=== PATIENT | female | born 1985 | race Caucasian/White ===

== ENCOUNTER 2017-12-28 15:11 | Outpatient (CLI) | payer OTHER ==
[~2017-12-28] VITALS: Ht 160 cm; Wt 90.9 kg
[~2017-12-28 15:11] MED LIST: DOCU-131 PO; IBUP-1222 PO; METF-650 PO; METF500T4 PO; OXYC-302 PO
[2017-12-28 15:27] VITALS: BP 120/74
[2017-12-28] MEDS ORDERED: PREN1TAB69 PO (15:43)
[2017-12-28 16:59] LABS: AMNISURE NEGATIVE (NEGATIVE)
== END 2017-12-28 17:43 | disposition home or self-care (01) ==
LOC: LDOP 15:11
PROVIDERS: ATTEND Obstetrics & Gynecology
DX: O42.90 Premature rupture of membranes, unspecified as to length of time between rupture and onset of labor, unspecified weeks of gestation (principal); Z3A.00 Weeks of gestation of pregnancy not specified
CPT/HCPCS: 59025; 76815; 84112; 99211; G0463

== ENCOUNTER 2017-12-30 03:06 | Inpatient (IN) | payer OTHER ==
[~2017-12-30] VITALS: Ht 160 cm; Wt 90.0 kg
[~2017-12-30 03:06] MED LIST changes: +PREN1TAB69 PO
[2017-12-30 03:19] VITALS: BP 120/59
[2017-12-30] MEDS ORDERED: D5%-LACTATED RINGERS 1,000 ML IV SCH (03:36)
[2017-12-30] MEDS ORDERED: OXYTOCIN 30U/ 0.9% NaCL 500ML 500 ML IV ONE (03:36)
[2017-12-30] MEDS ORDERED: OXYTOCIN 30U/ 0.9% NaCL 500ML 500 ML ONE ×2 (03:38→06:49)
[2017-12-30] MEDS ORDERED: NEWBORN KIT ONE (03:38)
[2017-12-30] MEDS: LACTATED RINGERS 1,000 ML IV SCH ×3 (04:00→23:00)
[2017-12-30] MEDS ORDERED: ALUMINUM/MAG/SIMETHICONE 30 ML UDC PO PRN (04:00)
[2017-12-30] MEDS ORDERED: TERBUTALINE 1 MG/ML, 1ML IVPush PRN ×2 (04:00)
[2017-12-30] MEDS ORDERED: METOCLOPRAMIDE 5 MG/ML, 2ML IVPush PRN (04:00)
[2017-12-30] MEDS ORDERED: FENTANYL PF 100 MCG/2ML IVPush PRN (04:00)
[2017-12-30] MEDS ORDERED: SODIUM CITRATE/CITRIC ACID 30 ML UDC PO PRN (04:00)
[2017-12-30] MEDS ORDERED: FENTANYL PF 100 MCG/2ML IV PRN (04:00)
[2017-12-30] MEDS ORDERED: TERBUTALINE 1 MG/ML, 1ML SQ PRN (04:00)
[2017-12-30] MEDS ORDERED: CALCIUM CARBONATE 500 MG TAB.CHEW PO PRN (04:00)
[2017-12-30] MEDS ORDERED: ONDANSETRON 2MG/ML, 2ML IVPush PRN (04:00)
[2017-12-30] MEDS ORDERED: FENTANYL PF 100 MCG/2ML ONE (04:10)
[2017-12-30 04:15] LABS: BASOPHILS # (AUTO) 0.06 x10^3/uL (0-0.1); BASOPHILS % (AUTO) 1 % (0-1); EOSINOPHILS % (AUTO) 1 % (1-7); LYMPHOCYTES % (AUTO) 20 % (22-44); MD NO; MEAN CORPUSCULAR HEMOGLOBIN 30.2 pg (27.0-34.8); MEAN CORPUSCULAR HGB CONC 32.9 g/dL (32.4-35.8); MEAN PLATELET VOLUME 8.4 fL (7.4-10.4); MONOCYTES # (AUTO) 0.83 x10^3/uL (0.2-0.8); MONOCYTES % (AUTO) 8 % (2-9); NEUTROPHILS # (AUTO) 7.61 x10^3/uL (1.8-6.8); NEUTROPHILS % (AUTO) 71 % (42-75); PLATELET COUNT 198 x10^3/uL (130-400); RED CELL DISTRIBUTION WIDTH 15.2 % (9.6-15.2)
[2017-12-30] MEDS ORDERED: ACETAMINOPHEN 325 MG TABLET PO PRN ×3 (05:30)
[2017-12-30] MEDS ORDERED: MAGNESIUM HYDROXIDE 8%, 30ML UDC PO PRN (05:30)
[2017-12-30] MEDS ORDERED: BISACODYL 10 MG SUPP PR PRN (05:30)
[2017-12-30] MEDS ORDERED: ONDANSETRON 2MG/ML, 2ML IV PRN (05:30)
[2017-12-30] MEDS ORDERED: OXYcodone/APAP 5/325MG TABLET PO PRN (05:30)
[2017-12-30] MEDS ORDERED: GLYCERIN ADULT SUPP PR PRN (05:30)
[2017-12-30] MEDS ORDERED: MISOPROSTOL 200 MCG TABLET PR PRN (05:30)
[2017-12-30] MEDS ORDERED: IBUPROFEN 600 MG TABLET ONE (07:19)
[2017-12-30] MEDS: IBUPROFEN 600 MG TABLET PO PRN ×2 (07:28→16:47)
[2017-12-30 08:30] VITALS: BP 132/61
[2017-12-30] MEDS: OXYTOCIN 30U/ 0.9% NaCL 500ML 500 ML IV SCH ×2 (08:43→16:47)
[2017-12-30] MEDS: OXYcodone/APAP 5/325MG TABLET PO PRN ×2 (09:35→20:11)
[2017-12-30] MEDS: PRENATAL VIT/IRON/FA 1 EACH TABLET PO SCH (12:36)
[2017-12-30 12:37] VITALS: BP 102/57
[2017-12-30 13:19] LABS: BASOPHILS # (AUTO) 0.04 x10^3/uL (0-0.1); BASOPHILS % (AUTO) 0 % (0-1); EOSINOPHILS # (AUTO) 0.06 x10^3/uL (0-0.4); EOSINOPHILS % (AUTO) 1 % (1-7); LYMPHOCYTES % (AUTO) 14 % (22-44); MD NO; MEAN CORPUSCULAR HEMOGLOBIN 31.1 pg (27.0-34.8); MEAN CORPUSCULAR HGB CONC 33.7 g/dL (32.4-35.8); MEAN CORPUSCULAR VOLUME 92.3 fL (80-100); MEAN PLATELET VOLUME 8.7 fL (7.4-10.4); MONOCYTES # (AUTO) 0.69 x10^3/uL (0.2-0.8); MONOCYTES % (AUTO) 6 % (2-9); NEUTROPHILS # (AUTO) 9.43 x10^3/uL (1.8-6.8); NEUTROPHILS % (AUTO) 79 % (42-75); PLATELET COUNT 169 x10^3/uL (130-400); RED BLOOD COUNT 3.64 x10^6/uL (3.82-5.3)
[2017-12-30 16:49] VITALS: BP 100/64
[2017-12-30] MEDS: DOCUSATE 100 MG CAPSULE PO PRN (20:10)
[2017-12-30 20:15] VITALS: BP 99/51
[2017-12-31] VITALS: BP 111/49
[2017-12-31] MEDS: OXYcodone/APAP 5/325MG TABLET PO PRN ×2 (00:12→04:43)
[2017-12-31] MEDS: IBUPROFEN 600 MG TABLET PO PRN ×2 (00:12→06:31)
[2017-12-31] MEDS: OXYTOCIN 30U/ 0.9% NaCL 500ML 500 ML IV SCH (01:11)
[2017-12-31 04:30] VITALS: BP 88/49
[2017-12-31] MEDS: LACTATED RINGERS 1,000 ML IV SCH (07:00)
[2017-12-31] MEDS: DOCUSATE 100 MG CAPSULE PO PRN (07:10)
[2017-12-31] MEDS: PRENATAL VIT/IRON/FA 1 EACH TABLET PO SCH (07:10)
[2017-12-31 07:13] VITALS: BP 108/60
[2017-12-31] MEDS ORDERED: OXYC-302 PO (08:27)
[2017-12-31] MEDS ORDERED: IBUP-1222 PO (08:27)
== END 2017-12-31 09:50 | disposition home or self-care (01) | DRG 775 ==
LOC: LDOP 03:06 → LDIP 03:37 → INTOOBSV 03:37 → OBSVTOIN 03:37 → 2NW 08:20
PROVIDERS: ADMIT Obstetrics & Gynecology; ATTEND Obstetrics & Gynecology
PROC: 10E0XZZ Delivery of Products of Conception, External Approach (ICD-10-PCS; principal; 2017-12-30)
DX: O62.3 Precipitate labor (principal); E28.2 Polycystic ovarian syndrome; O75.89 Other specified complications of labor and delivery; O76 Abnormality in fetal heart rate and rhythm complicating labor and delivery; Z37.0 Single live birth; Z3A.39 39 weeks gestation of pregnancy; Z87.440 Personal history of urinary (tract) infections
CPT/HCPCS: 36415; 85025; 86850; 86900; 89060; J3010; J2590; J7120; Q0114